=== PATIENT | female | born 1990 | race Caucasian/White ===

== ENCOUNTER → 2018-04-15 16:19 | Outpatient (CLI) | payer SELFPAY ==
[2018-04-15 17:58] LABS: Color, Urine Yellow (Yellow); Glucose, Dipstick Normal (Normal); Ketone-Dipstick 5 mg/dl (Negative); Leukocyte Esterase-Dipstick Negative /ul (Negative); Nitrite-Dipstick Negative (Negative); Occult Blood-Urine Negative /ul (Negative); Protein-Dipstick 30 mg/dl (Negative); Urine Bilirubin Dipstick Negative (Negative); Urine Clarity Clear (Clear); Urine Urobilinogen 1 mg/dl (Normal); Urine pH 6.5 (5.0 - 8.0)
[2018-04-15 18:01] LABS: Absolute Lymphocyte Count 2.86 X10^3/ul (0.83-4.51); Absolute Neutrophil Count 6.2 X10^3/uL (2.0-7.7); Basophil# 0.02 X10^3/uL; Basophil% 0.2 % (0-1); Eosinophil# 0.03 X10^3/uL; Eosinophils% 0.3 % (0-5); Hematocrit 40.1 % (37-47); Hemoglobin 13.5 g/dl (12.0-15.0); Lymphocyte # 2.86 X10^3/ul (4.0); Lymphocyte % 29.5 % (19-41); Mean Corp Hgb Conc 33.7 g/gl (32-36); Mean Corpuscular Hgb 29.5 pg (27.0-32.0); Mean Corpuscular Volume 87.6 fL (81-99); Monocyte# 0.53 X10^3/uL; Monocyte% 5.5 % (0-10); Neutrophil # 6.23 X10^3/uL (2.7-7.7); Neutrophil % 64.3 % (47-70); Platelet Count 261 K/mm3 (150-450); RBC Distribution Width CV 12.3 % (11.6-14.6); RBC Distribution Width SD 38.9 fl (35.1-43.9); Red Blood Count 4.58 M/mm3 (4.2-5.4); White Blood Count 9.7 K/mm3 (4.4-11.0)
[2018-04-15 18:03] LABS: POSITIVE COUNT NO; POSITIVE DIFFERENTIAL NO; POSITIVE MORPHOLOGY NO
[2018-04-15 18:13] LABS: Thyroid Stim Hormone (TSH) 0.54 uIU/mL (0.358-3.74)
[2018-04-15 18:53] LABS: HIV - WCH Non-Reactive (Nonreactive); Rubella IgG 61.5 IU/mL
[2018-04-15 20:31] LABS: Chlamydia Trachomatis by PCR Negative (Negative); Neisserai gonorrhoeae by PCR Negative (Negative); Probe Check PASS; Sample Adequacy Control PASS; Specimen Processing Control PASS
[2018-04-17 03:50] LABS: Prenatal RPR NONREACTIVE (NONREACTIVE)
[2018-04-17 11:37] LABS: HEPATITIS B SURFACE AG Negative (Negative); Hep C Antibodies <0.1 s/co ratio (0.0-0.9)
[2018-04-24 12:06] LABS: HPV Reflexed? NOT INDICATED
== END ==
PROVIDERS: Visit Provider Obstetrics & Gynecology
DX: Z34.81 Encounter for supervision of other normal pregnancy, first trimester (principal); Z12.4 Encounter for screening for malignant neoplasm of cervix; Z11.3 Encounter for screening for infections with a predominantly sexual mode of transmission
CPT/HCPCS: 36415; 81002; 84443; 85025; 86703; 86762; 86803; 87340; 87491; 87591; 88175; G0145

== ENCOUNTER → 2018-10-21 13:36 | Outpatient (CLI) | payer SELFPAY | PROVIDERS: Visit Provider Obstetrics & Gynecology | DX: Z36.85 Encounter for antenatal screening for Streptococcus B (principal) | CPT/HCPCS: 87081 ==

== ENCOUNTER 2018-11-12 00:15 | Outpatient (CLI) | payer SELFPAY ==
[2018-11-12 01:23] VITALS: BMI 28.5
--- NOTE | 2018-11-12 08:04 | OB.TRI.NOTE ---
History of Present Illness Date of Service: 11/12/18 Was patient seen by the physician?: Yes Reason For Visit: R/O labor Date of Service: 11/12/18 Final SRI: 11/19/18 Final SRI Source: US <20 weeks Gestational age: 39 Weeks and 0 Days History of Present Illness: Contractions at home. 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 No signs of SROM. Reassuring FHR tracing. Will return if symptoms of labor increase or has SROM.
--- NOTE | 2018-11-12 08:07 | OB.TRI.HP_ITS ---
History of Present Illness Date of Service: 11/12/18 Was patient seen by the physician?: Yes Reason For Visit: R/O labor Date of Service: 11/12/18 Final SRI: 11/19/18 Final SRI Source: US <20 weeks Gestational age: 39 Weeks and 0 Days History of Present Illness: Contractions at home. 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 No signs of SROM. Reassuring FHR tracing. Will return if symptoms of labor increase or has SROM.
== END 2018-11-12 03:20 | disposition home or self-care (01) ==
LOC: WPOUT 00:59 → WP 01:00
PROVIDERS: Visit Provider Obstetrics & Gynecology
DX: Z34.93 Encounter for supervision of normal pregnancy, unspecified, third trimester (principal)
CPT/HCPCS: 59025; 59050; 99218; G0378

== ENCOUNTER 2018-11-17 18:10 | Outpatient (CLI) | payer SELFPAY ==
--- NOTE | 2018-11-19 13:00 | OB.TRI.NOTE ---
History of Present Illness Date of Service: 11/17/18 Was patient seen by the physician?: No Reason For Visit: RULE OUT LABOR Date of Service: 11/17/18 Final SRI: 11/18/18 Final SRI Source: US <20 weeks Gestational age: 40 Weeks and 1 Days History of Present Illness: contractions, no signs of SROM Allergies No Known Allergies Allergy (Verified 11/18/18 04:51) Physical Exam General: Alert, Oriented x3, Cooperative, No apparent distress Cardiovascular: Regular rate, Regular Rhythm Lungs: Clear to auscultation, Normal air movement Abdomen: Soft, Non Tender, Non-Distended, Gravid, Appropriate for Gestational Age Extremities:: No clubbing Neurological: Neuro grossly intact [employer]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 Return with increasing signs of labor or with SROM
== END 2018-11-17 21:30 | disposition home or self-care (01) ==
LOC: WPOUT 20:15 → WP 20:16
PROVIDERS: Family Provider Obstetrics & Gynecology; Visit Provider Obstetrics & Gynecology
DX: Z34.93 Encounter for supervision of normal pregnancy, unspecified, third trimester (principal)
CPT/HCPCS: 59025; 59050; 99218; G0378

== ENCOUNTER 2018-11-18 04:05 | Inpatient (IN) | payer SELFPAY ==
[2018-11-18] MEDS: Oxytocin 30 units/NS 500 ml 30 UNITS/500 ML IV.SOLN 334 UNITS IV (04:17)
--- NOTE | 2018-11-18 04:42 | PCM.OB.VAG ---
Vaginal Delivery Maternal Presentation: Active Labor Presented s/p home delivery with retained placenta at 39w5d ega Amniotic Membrane Rupture Type: Spontaneous at home Rupture of Membrane time: 0330 Amniotic Fluid Description: Clear Final SRI: 11/20/18 Final SRI Source: US <20 weeks Gestational age: 39 Weeks and 5 Days Date of Procedure: 11/18/18 Pre-Operative Diagnosis: Retained polacenta Post-Operative Diagnosis: same Surgery/ Procedure Performed: Spontaneous Vaginal Delivery Type of Anesthesia: Local with 1% lidocaine Description of Procedure: Delivered at home then brought to L and D by squad. Placenta in place on presentation and was delivered spontaneously intact with a centrally located 3VC, The membranes were mildly meconium stained. Inspection revealed a small posterior vaginal perineal tear (first degree). This was repaired with 2-0 Vicryl. A small right periurethral tear was repaired with 3-0 rapide suture. The uterus contracted well. This was a delivery. Presentation: Vertex Placental Delivery Description: Spontaneous Placenta Disposition: [facility] Percentage of Placenta Abruption: 0 Cord Vessel Description: 3 Vessels Nuchal Cord Compression: Without compression Cord Entanglement: None Estimated Blood Loss: 200cc Infant A gender: Male Episiotomy Description: None Laceration: Midline, Periurethral Extnsion/lac, Perineal Extension/lac, Vaginal Extension/lac, 1st degree Medications given after delivery: IV Pitocin Complications: None
[2018-11-18] MEDS: Oxytocin 30 units/NS 500 ml 30 UNITS/500 ML IV.SOLN 167 UNITS IV (04:46)
--- NOTE | 2018-11-18 04:49 | DCINST_ITS ---
Discharge Diet: No Restrictions Discharge Activity: Return to Normal Activity, No Restrictions, May Drive, May Shower Return to work on:: 01/12/19 May shower in (days): 0 May resume sexual activity in: 6 weeks Call your doctor if your incision/area has: Sudden Increased Bleeding, Increased Pain/ Swelling, Foul Smelling Discharge Call your doctor if you observe: Fever of 101 or Higher, Inability to urinate, Inability to have a bowel movement, Using more than one pad per hour, Shortness of breath, Chest pain, Calf discomfort, Uncontrolled pain Cleanse incision/area with: Soap & Water Additional Instructions: If you experience any of the following, contact your healthcare provider. * Bleeding that soaks a pad every hour for 2 hours * Fever 100.4 or higher * Unrelieved incision or abdominal pain * Swelling, redness, discharge or bleeding from your incision or episiotomy site * Your incision begins to separate * Problems urinating (including inability to urinate or burning while urinating). * Visual changes * Severe headache * Flu-like symptoms * Pain or redness in one of both of your breasts * Pain, warmth, tenderness or swelling in your legs, especially the calf area * Frequent nausea and vomiting * Symptoms of depression or anxiety If you experience any of the following, call 911 or go to the nearest Emergency Room. * Chest pain * Problems breathing * Seizure activity * Partial or complete paralysis of a body part, slurred speech, weakness or drooping of the face, or a sudden inability to walk or hold your balance Allergies/Adverse Reactions: Allergies No Known Allergies Allergy (Verified 11/12/18 01:24) Medications to take at Discharge Vit,Calc76/Iron/Folic [Pnv 29-1 Tablet] 1 tab PO DAILY 11/12/18 Ibuprofen [Motrin] 600 mg PO Q6H PRN PRN #30 tab 11/18/18 The following prescriptions were given: Ibuprofen [Motrin] 600 mg PO Q6H PRN PRN #30 tab PRN Reason: pain or cramping Please Follow Up With: Clifford Farmer MD When: 6 weeks Test Results: Test results from this visit will be discussed in further detail at your follow- up appointment, if applicable. Proposed Discharge Date: 11/20/18
[2018-11-18 05:06] LABS: Absolute Lymphocyte Count 2.02 X10^3/ul (0.83-4.51); Absolute Neutrophil Count 19.9 X10^3/uL (2.0-7.7); Basophil# 0.01 X10^3/uL; Eosinophil# 0.01 X10^3/uL; Hematocrit 43.3 % (37-47); Hemoglobin 14.3 g/dl (12.0-15.0); Lymphocyte # 2.02 X10^3/ul (4.0); Lymphocyte % 8.8 % (19-41); Mean Corpuscular Hgb 30.2 pg (27.0-32.0); Mean Corpuscular Volume 91.4 fL (81-99); Mean Platelet Vol. 11.4 fl (6.2-12.0); Monocyte# 0.91 X10^3/uL; Neutrophil # 19.87 X10^3/uL (2.7-7.7); Neutrophil % 86.6 % (47-70); Platelet Count 218 K/mm3 (150-450); RBC Distribution Width CV 13.4 % (11.6-14.6); RBC Distribution Width SD 44.3 fl (35.1-43.9); Red Blood Count 4.74 M/mm3 (4.2-5.4)
[2018-11-18 05:07] LABS: POSITIVE COUNT NO; POSITIVE DIFFERENTIAL NO; POSITIVE MORPHOLOGY NO
[2018-11-18 05:14] VITALS: BMI 27.7
--- NOTE | 2018-11-18 06:18 | NURSING ---
Pt arrived via squad after unplanned home delivery. Squad reports born at 03:20am, pt unsure of rupture time or onset of labor. Dr. Gandhi in room to deliver placenta, fluid appeared light meconium. Dr. Rosas at bedside on arrival.
--- NOTE | 2018-11-18 07:41 | PN.OBGYN_ITS ---
Subjective: Some vaginal soreness otherwise well. Objective: Afeb VSS Hgb good today - Physical Exam General: Alert, Oriented x3, Cooperative, No apparent distress Lungs: Clear to auscultation, Normal air movement Cardiovascular: Regular rate, Regular Rhythm Abdomen: Soft, Non Tender, Non-Distended Extremities: No edema Skin: No rashes Neurological: Neuro grossly intact Psych/Mental Status: Normal Affect Comment: Lochia appropriate Weight: 171 lb 12.8 oz Body Mass Index (BMI) 27.7 Intake and Output for Last 24 Hours 11/16/18 11/17/18 11/18/18 23:59 23:59 23:59 Intake Total 834 / 834 Balance 834 / 834 Laboratory Tests Past 24 Hrs 11/18/18 11/18/18 04:16 04:16 WBC 23.0 H RBC 4.74 Hgb 14.3 Hct 43.3 MCV 91.4 MCH 30.2 MCHC 33.0 RDW 13.4 RDW Differential 44.3 H Plt Count 218 MPV 11.4 Immature Gran % (Auto) 0.600 Neut % (Auto) 86.6 H Lymph % (Auto) 8.8 L [place] % (Auto) 4.0 Eos % (Auto) 0.0 Baso % (Auto) 0.0 Absolute Neuts (auto) 19.9 H Absolute Lymphs (auto) 2.02 Total Counted Not Reportable Blood Type B POSITIVE Antibody Screen NEGATIVE Medical Necessity - Tobacco Use Smoking Status: Never smoker Assessment/Plan Doing well on PP day#0. Continue routine PP care.
[2018-11-18 07:45] VITALS: BP 122/66; PULSE 98; RESP 16; TEMP 36.8
[2018-11-18] MEDS: Prenatal Vits Tablet 1 TABLET PO (11:53)
[2018-11-18] MEDS: Ibuprofen 600 MG Tablet PO (12:04)
[2018-11-18 12:07] VITALS: BP 125/87; PULSE 57; RESP 16; TEMP 37
[2018-11-18 15:45] VITALS: BP 106/70; PULSE 76; RESP 16; TEMP 37
[2018-11-18 20:00] VITALS: BP 114/74; PULSE 83; RESP 16; TEMP 36.8
[2018-11-19] VITALS: PULSE 80; RESP 18; TEMP 36.7
[2018-11-19 02:00] VITALS: PULSE 88; RESP 17
[2018-11-19 06:43] LABS: Hematocrit 37.1 % (37-47); Hemoglobin 12.2 g/dl (12.0-15.0); Mean Corp Hgb Conc 32.9 g/gl (32-36); Mean Corpuscular Hgb 30.7 pg (27.0-32.0); Mean Corpuscular Volume 93.2 fL (81-99); Platelet Count 179 K/mm3 (150-450); RBC Distribution Width CV 13.8 % (11.6-14.6); RBC Distribution Width SD 47.2 fl (35.1-43.9); Red Blood Count 3.98 M/mm3 (4.2-5.4); White Blood Count 12.8 K/mm3 (4.4-11.0)
[2018-11-19 06:44] LABS: Scan Indicated on CBC? Y/N NO
--- NOTE | 2018-11-19 08:23 | PCM.PN.OB ---
Subjective: No specific complaints. Bleeding ;light, breast feeding. Objective: Afeb VSS - Physical Exam General: Alert, Oriented x3, Cooperative, No apparent distress Lungs: Clear to auscultation, Normal air movement Cardiovascular: Regular rate, Regular Rhythm Abdomen: Soft, Non Tender, Non-Distended Extremities: No edema Skin: No rashes Neurological: Neuro grossly intact Psych/Mental Status: Normal Affect Comment: Lochia light Vital Signs Temp Pulse Resp BP 98.0 F 88 17 114/74 11/19/18 00:00 11/19/18 02:00 11/19/18 02:00 11/18/18 20:00 Oxygen Delivery Method Room Air Weight: 171 lb 12.8 oz Body Mass Index (BMI) 27.7 Intake and Output for Last 24 Hours 11/17/18 11/18/18 11/19/18 23:59 23:59 23:59 Intake Total 834 / 834 Output Total 1100 / 1100 Balance -266 / -266 Laboratory Tests Past 24 Hrs 11/19/18 06:25 WBC 12.8 H RBC 3.98 L Hgb 12.2 Hct 37.1 MCV 93.2 MCH 30.7 MCHC 32.9 RDW 13.8 RDW Differential 47.2 H Plt Count 179 MPV 11.0 Medical Necessity - Tobacco Use Smoking Status: Never smoker Assessment/Plan Doing well on PP day#1-2. Cleared for discharge home today. Home going instructions and warnings given.
--- NOTE | 2018-11-19 08:24 | PCM.DC.SUM ---
Discharge Date and Diagnosis Date of Admission: 11/18/18 Date of Discharge: 11/19/18 - Primary Discharge Diagnosis S/P home delivery Hospital Course and Treatment Operations: None Procedures: - - Delivery of placenta, repair of vaginal lacerations. Summary of Care Provided: The patient is a 28 year old F [presented after home delivery of viable male infant. Placenta was delivered here and vaginal lacerations repaired without complication. Post course unremarkable. Discharged home on PP day 1-2] - Physical Exam Vital Signs Temp Pulse Resp BP 98.0 F 88 17 114/74 11/19/18 00:00 11/19/18 02:00 11/19/18 02:00 11/18/18 20:00 Oxygen Delivery Method Room Air Weight: 171 lb 12.8 oz Body Mass Index (BMI) 27.7 Intake and Output for Last 24 Hours 11/17/18 11/18/18 11/19/18 23:59 23:59 23:59 Intake Total 834 / 834 Output Total 1100 / 1100 Balance -266 / -266 Laboratory Tests Past 24 Hrs 11/19/18 06:25 WBC 12.8 H RBC 3.98 L Hgb 12.2 Hct 37.1 MCV 93.2 MCH 30.7 MCHC 32.9 RDW 13.8 RDW Differential 47.2 H Plt Count 179 MPV 11.0 Discharge Diet: No Restrictions Discharge Activity: Return to Normal Activity, No Restrictions, May Drive, May Shower Return to work on:: 01/12/19 May shower in (days): 0 May resume sexual activity in: 6 weeks Call your doctor if your incision/area has: Sudden Increased Bleeding, Increased Pain/ Swelling, Foul Smelling Discharge Call your doctor if you observe: Fever of 101 or Higher, Inability to urinate, Inability to have a bowel movement, Using more than one pad per hour, Shortness of breath, Chest pain, Calf discomfort, Uncontrolled pain Cleanse incision/area with: Soap & Water Home Medications: Medications to take at Discharge Vit,Calc76/Iron/Folic [Pnv 29-1 Tablet] 1 tab PO DAILY 11/12/18 Please Follow Up With: Clifford Farmer MD When: 6 weeks Disposition: Home Minutes spent on discharge:: 15 Patient Condition:: Good Medical Necessity - Tobacco Use Smoking Status: Never smoker Meaningful Use Info Meaningful Use Diagnoses (Choose all that apply): None applicable
[2018-11-19 08:45] VITALS: BP 107/71; PULSE 76; RESP 16; TEMP 36.9
[2018-11-19] MEDS: Prenatal Vits Tablet 1 TABLET PO (12:14)
[2018-11-19 14:00] VITALS: BP 108/76; PULSE 80; RESP 16; TEMP 36.9
== END 2018-11-19 14:15 | disposition home or self-care (01) | DRG 807 ==
PROVIDERS: Admitting Provider Obstetrics & Gynecology; Family Provider Obstetrics & Gynecology; Visit Provider Obstetrics & Gynecology
DX: O70.0 First degree perineal laceration during delivery (principal); Z37.0 Single live birth; Z3A.39 39 weeks gestation of pregnancy; O34.211 Maternal care for low transverse scar from previous cesarean delivery; N85.8 Other specified noninflammatory disorders of uterus; O77.0 Labor and delivery complicated by meconium in amniotic fluid; O73.0 Retained placenta without hemorrhage
CPT/HCPCS: 85025; 85027; 86850; 86900

== ENCOUNTER → 2020-08-28 | Outpatient (CLI) | payer SELFPAY ==
[2020-08-28 16:49] LABS: Absolute Lymphocyte Count 2.67 X10^3/uL (0.83-4.51); Absolute Neutrophil Count 5.5 X10^3/uL (2.0-7.7); Basophil# 0.04 X10^3/uL; Basophil% 0.5 % (0-1); Eosinophil# 0.03 X10^3/uL; Eosinophils% 0.3 % (0-5); Hematocrit 38.9 % (37-47); Hemoglobin 12.6 g/dL (12.0-15.0); Lymphocyte # 2.67 X10^3/ul (4.0); Lymphocyte % 30.8 % (19-41); Mean Corp Hgb Conc 32.4 g/dL (32-36); Mean Corpuscular Hgb 28.8 pg (27.0-32.0); Mean Platelet Vol. 10.8 fl (6.2-12.0); Monocyte# 0.46 X10^3/uL; Monocyte% 5.3 % (0-10); NRBC Flagged by Analyzer 0 % (0-5); Neutrophil # 5.46 X10^3/uL (2.7-7.7); Neutrophil % 62.9 % (47-70); Platelet Count 267 K/mm3 (150-450); RBC Distribution Width CV 11.9 % (11.6-14.6); RBC Distribution Width SD 39.3 fl (35.1-43.9); Red Blood Count 4.37 M/mm3 (4.2-5.4); White Blood Count 8.7 K/mm3 (4.4-11.0)
[2020-08-28 16:54] LABS: Color, Urine Yellow (Yellow); Glucose, Dipstick Normal (Normal); Ketone-Dipstick Negative (Negative); Leukocyte Esterase-Dipstick Negative /ul (Negative); Nitrite-Dipstick Negative (Negative); Occult Blood-Urine 10 /ul (Negative); Protein-Dipstick Negative (Negative); Urine Bilirubin Dipstick Negative (Negative); Urine Clarity Clear (Clear); Urine Urobilinogen Normal (Normal)
[2020-08-28 17:19] LABS: Thyroid Stim Hormone (TSH) 1.64 uIU/mL (0.358-3.74)
[2020-08-29 12:37] LABS: HIV - WCH Non-Reactive (Nonreactive); Hepatitis B Surface Antigen Non-Reactive (Nonreactive); Hepatitis C Antibody Non-Reactive (Nonreactive); Rubella IgG Reactive (Nonreactive)
[2020-08-31 01:27] LABS: Prenatal RPR NONREACTIVE (NONREACTIVE)
[2020-08-31 03:07] LABS: Chlamydia By Nucleic Acid AMP Negative (Negative)
[2020-08-31 08:37] LABS: Gonococcus By Nucleic Acid AMP Negative (Negative)
== END | disposition home or self-care (01) ==
LOC: LABSPEC 15:51
PROVIDERS: Visit Provider Obstetrics & Gynecology
DX: Z34.81 Encounter for supervision of other normal pregnancy, first trimester (principal); Z12.4 Encounter for screening for malignant neoplasm of cervix; Z11.3 Encounter for screening for infections with a predominantly sexual mode of transmission
CPT/HCPCS: 36415; 81002; 84443; 85025; 86703; 86762; 86803; 87086; 87088; 87340; 87491; 87591; 88175; G0145

== ENCOUNTER → 2021-03-14 | Outpatient (CLI) | payer SELFPAY | END | disposition home or self-care (01) | LOC: LABSPEC 15:29 | PROVIDERS: Visit Provider Obstetrics & Gynecology | DX: Z36.85 Encounter for antenatal screening for Streptococcus B (principal) | CPT/HCPCS: 87081 ==

== ENCOUNTER 2021-04-06 06:50 | Inpatient (IN) | payer SELFPAY ==
[2021-04-06] VITALS (42 sets, daily range): BP systolic 88–166; BP diastolic 51–80; PULSE 66–87; RESP 16–18; TEMP 36.2–37; O2SAT 73–100; BMI 27.1
[2021-04-06] MEDS: Lactated Ringers 1,000 ML 50 ML IV (07:05)
[2021-04-06 07:37] LABS: Absolute Lymphocyte Count 2.44 X10^3/uL (0.83-4.51); Absolute Neutrophil Count 8.7 X10^3/uL (2.0-7.7); Basophil# 0.04 X10^3/uL; Basophil% 0.3 % (0-1); Eosinophil# 0.02 X10^3/uL; Eosinophils% 0.2 % (0-5); Hematocrit 40.4 % (37-47); Hemoglobin 13.2 g/dL (12.0-15.0); Lymphocyte # 2.44 X10^3/ul (0.83-4.51); Lymphocyte % 20.5 % (19-41); Mean Corp Hgb Conc 32.7 g/dL (32-36); Mean Corpuscular Volume 94.8 fL (81-99); Mean Platelet Vol. 11.8 fl (6.2-12.0); Monocyte# 0.64 X10^3/uL; Monocyte% 5.4 % (0-10); NRBC Flagged by Analyzer 0 % (0-5); Neutrophil # 8.65 X10^3/uL (2.7-7.7); Neutrophil % 72.8 % (47-70); Platelet Count 173 K/mm3 (150-450); RBC Distribution Width CV 12.8 % (11.6-14.6); RBC Distribution Width SD 44.5 fl (35.1-43.9); Red Blood Count 4.26 M/mm3 (4.2-5.4); White Blood Count 11.9 K/mm3 (4.4-11.0)
[2021-04-06] MEDS: Lactated Ringers 500 ML 999 ML IV (08:08)
--- NOTE | 2021-04-06 08:50 | PCM.HP.BLA ---
History and Physical Date of Admission: 04/06/21 ACOG ANTEPARTUM RECORD - HISTORY AND PHYSICAL (04/06/2021) Name: JULIA LORENZO History of this : This is a 30 year old [id number] presents at 39 wks + 4 days gestation in early labor. History significant for precipitous delivery at home at term and prior . OB Physician: Clifford Farmer MD [place]'s Physician: Rupal Rodriguez ...................................................................... : 1990 Age: 30 Address: [address] [place] [address] Phone: [phone] ([phone] Insurance Carrier: Emergency Contact: HIRAUS LORENZO [phone] ...................................................................... Final SRI: 04/09/21 By Ultrasound: 8 weeks 0 days PARITY: (G-Total Pregnancies P-Fullterm,Premature,Induced AB,Spont AB, Ectopics, Multiple,Living) SRI CONFIRMATION: By LMP: 06/26/20 Initial Exam: 04/02/21 By First Ultrasound Exam: 04/09/21 Final SRI: 04/09/21 OB PROBLEM LIST: 2nd child precip delivery at home Gentic and carrier screening declined Oldest son born with a rocker foot Prior . 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 Drug Use - denies use of street drugs Sexual Activity - Place of - [place] Spouse-Sig Other Name - Hira Spouse-Sig Other Occupation - [employer] Spouse-Sig Other Phone No - [phone] Children Name(s) - Mariano Mendenhall PRIOR DELIVERY HISTORY DEL DATE GEST LAB WT LB WT OZ TYPE ANES LABOR TX 03 Dec 04 39 5 7 0 Vag Local No 18 December 31 39 0 6 2 C-Sec Spinal No 30 Oct 18 5 0 0 0 Vag None No ANTEPARTUM FLOW CHART VISIT GE RTC FU F F MD U U DATE WK MD WKS HT PN HR M SS BP ED WT MD GL D EF ST __ ____ ___ __ __ ___ __ __ __ ___ __ __ __ ___ __ Mar JMW 1 38 V + + 112/70 sl 170 tr - S Mar JMW 1 38 V + + 104/68 0 167 1+ - 2+ 50 -2 04 Mar 37 JMW 1 37 + + 106/70 0 169 tr - 28 Feb 36 SHM 1 36 V + + 90/60 0 167 tr - 1 0 -4 14 Feb 34 SHM 2 34 V + + 124/62 0 165 - - Jan 32 CM 2 32 V + + 104/60 0 164 ne ne 08 Feb 13 JMW 3 29 + + 110/75 0 157 - tr January 08 JMW 4 24 + + 122/78 0 152 tr - 07 Dec 05 JMW 4 20 + + 112/70 0 147 - - 09 Oct 31 JMW 4 16 + + 100/58 0 142 tr - 09 Sep 29 JMW 4 + O 104/64 0 141 tr - ANTEPARTUM NOTE(S): Apr 05 2021: periodic contractions/cramping,Good FM Mar 28 2021: mild cramping, Good FM Mar 21 2021: Good FM Mar 14 2021: see note Feb 28 2021: feeling well. AM Feb 13 2021: Jan 23 2021: CBC,OGCT Today,Good FM,Feeling Well Dec 19 2020: Glucola/Instructions Given,Good FM Nov 22 2020: Sono Today, Good FM,Periodic Fatigue continues Oct 24 2020: Periodic nausea,Quickening Noted Sep 26 2020: Doing Well COMPREHENSIVE ANTEPARTUM NOTE(S): Mar 28 2021: Julia is here for a PNV at 38 wks. Good FM. No edema present. Denies ctx's, mild cramping occasionally. No back pain or pelvic pressure. Would like a cervix check. MK Mar 21 2021: Julia is here for visit at 37.2 weeks. Feeling well. Baby active. Discussed entering hosp during the night. Some cramping at home but no timeable contractions. No spcecific concerns today. DRC. Mar 21 2021: H taken to OB. tkg Mar 14 2021: Julia is here for visit. She is doing well and without complaint today. GBS today, LARC form completed and declined by Julia. She does relate her last baby was born at home and pretty traumatized by this. Her first son was born by C/S for NRFHT. Easy at home and planned again with this . She relates they will head to hospital as soon as she is having regula Mar 14 2021: Reviewed cervical exam and induction indications. Ok to with cervix check today. hx unintended home last time following discharge from hospital when in latent labor. GBS obtained. Declines LARC. Feb 28 2021: No complaints. Reviewed GBS for next visit and LARC forms. Does not desire LARC. Labor, FM precautions reviewed. Also discussed visitor policy. Pt anxious as her oldest will start Kindergarten on her due date. Feb 13 2021: Julia is here for PNV. Feeling well and voices no complaints or concerns. Having good FM. No edema noted. Urine neg/neg. LSS Feb 13 2021: 32/1w. Feeling well without issues. F/u 2w. CM Oct 24 2020: Here for PNV and declines MSAFP and CF testing. Questionable Quickening noted. Periodic nausea. ASHLEY Sep 28 2020: TELEHEALTH NOB VISIT, 30 MINUTES DURATION. Julia is a 30 year old A1 L2 with an SRI of 04/09/2021, current GA is 12 w 3 d. She resides with her , Hira, and their two sons, Abdirashid and Mariano. Abdirashid was delivered by C/S at [facility] for non-reassuring FHT's, he was also born with a rocker foot. Julia states that she was planning at at [facility] with Mariano, but she ended Sep 27 2020: Julia did not answer phone for NOB Telehealth visit. Message left to please call to reschedule. Yordy AREVALO. Sep 04 2020: Julia did not answer phone for Telehealth [place]. Unable to leave message as voice mail not set up. Yordy AREVALO. REVIEW OF SYSTEMS: GENERAL - Denies fever, or chills SKIN - Denies rash, new skin lesions, or change in moles EYES - Denies blurred vision, or change in visual acuity EARS - Denies ear pain, or difficulty hearing NOSE - Denies nasal congestion, discharge, or bleeding MOUTH - Denies sore throat, or difficulty swallowing NECK - Denies pain or swelling RESPIRATORY - Denies shortness of breath, cough, wheezing CARDIOVASCULAR - Denies palpitations, chest pain, orthopnea, PND, peripheral edema, syncope or claudication GASTROINTESTINAL - Denies nausea, vomiting, diarrhea, constipation, Denies abdominal pain, melena and or bright red blood GENITOURINARY - Denies dysuria, frequency of urination, urgency, or hesitancy MUSCULOSKELETAL - Denies joint or muscle pain, or back pain NEUROLOGICAL - Denies localized numbness, weakness, or tingling PSYCHIATRIC - Denies depression, anxiety, substance abuse or suicide attempts ENDOCRINE - Denies heat or cold intolerance, weight loss or gain, increasing thirst HEMATO-IMMUNOLOGIC - Denies easy bruising, bleeding, oral ulcerations or recurrent infections GENETICS SCREENING: Age 35+ years: No Thalassemia: No Neural Tube Defect: No Down Syndrome: No ABE-SACHS: No Sickle Cell Disease: No Hemophilia: No Musc. Dystrophy: No Cystic Fibrosis: No-declines screening [place] Chorea: No Mental Retardation: No Fragile X: No Other genetic: No Other defects: No SABs/still births: No Drugs since LMP: No Comments: son had Curved Foot- corrected with brace INFECTION HISTORY: High risk AIDS: No High risk Hepatitis: No Exposed to TB: No Exposed to Herpes: No Rash/viral illness since LMP: No History of STD: No MENSTRUAL HISTORY: *Menses Amount/Duration: 5 daysMenses Regularity: RegularMenarche (Age Onset): 14* PAST SUMMARY: PARITY: 1. Total Pregnancies............ 4 2. Full Term Pregnancies........ 2 3. Premature.................... 0 4. Abortions - Induced.......... 0 5. Abortions - Spontaneous...... 1 6. Ectopics..................... 0 7. Multiple Births.............. 0 8. Living Children.............. 2 PAST #1: Date of :.................. 01/03/16 Gestation Weeks:................ 39 Length of labor(hours):......... 0 Sex:............................ M Weight-lbs:............... 6 Weight-oz:................ 2 Type of Delivery:............... C-Sect Type of Anesthesia:............. Spinal Place of Delivery:.............. [facility] Treatment of Labor?:.... No Comment: CURVED FOOT PAST #2: Date of :.................. 11/14/17 Gestation Weeks:................ 5 Length of labor(hours):......... 0 Sex:............................ UNKNOWN Weight-lbs:............... 0 Weight-oz:................ 0 Type of Delivery:............... Vag Type of Anesthesia:............. None Place of Delivery:.............. HOME Treatment of Labor?:.... No Comment: SAB PAST #3: Date of :.................. 11/18/18 Gestation Weeks:................ 39 Length of labor(hours):......... 5 Sex:............................ M Weight-lbs:............... 7 Weight-oz:................ 0 Type of Delivery:............... Vag Type of Anesthesia:............. Local Place of Delivery:.............. Home Treatment of Labor?:.... No Comment: UNPLANNED HOME , PHYSICAL EXAMINATION General Appearence: 30 yo female in no acute distress Vital Signs: AF, VSS Heart: RRR without rubs or gallops Lungs: CTA x 2 Breasts: deferred Abdomen: gravid Pelvis: Cervix: 4+/75 Presentation: cephalic Station: -2 Fetus: Size: AGA Movement: present Heart: present LAB TEST(S) ORDERED SINCE:07/13/20 03/18/2021 RULE OUT BETA STREP (GRP. B) 01/23/2021 GLUCOSE CHALLENGE 50GM 1 HOUR 01/23/2021 CBC + DIFF 08/31/2020 PAP TEST I-G 08/31/2020 CULTURE, URINE 08/31/2020 CHLAMYDIA/GC NAHOMY APTIMA 08/30/2020 RPR 08/29/2020 RUBELLA IGG 08/29/2020 HIV - [facility] 08/29/2020 HEPATITIS C ANTIBODY 08/29/2020 HEPATITIS B SURFACE ANTIGEN 08/28/2020 URINALYSIS, ROUTINE (DIPSTICK) 08/28/2020 THYROID STIM HORMONE (TSH) 08/28/2020 T AND S-NO CHARGE W/PNP 08/28/2020 CBC W/DIFF, AUTOMATED == ==== Order Observation Description Value Ref_Range A* Site == ==== RULE OUT BETA S NOTE SHINE CBC + DIFF NOTE [facility] CBC + DIFF CBC + DIFF [facility] CBC-COMPLETE BLOOD COUNT CBC + DIFF WBC 10.3 x 10EE3/UL 4.5 - 10.8 [facility] CBC + DIFF RBC 3.75 x 10EE6/UL 4.10 - 5.30 L [facility] CBC + DIFF HEMOGLOBIN 11.9 g/dl 12.0 - 16.0 L [facility] CBC + DIFF HEMATOCRIT 34.4 % 34.0 - 46.0 [facility] CBC + DIFF MCV 92 fl 80 - 99 [facility] CBC + DIFF MCH 32 pg 27 - 33 [facility] CBC + DIFF MCHC 35 X10 3 32 - 36 [facility] CBC + DIFF RDW/CV 13.1 % 12.0 - 15.6 [facility] CBC + DIFF PLATELET 183 x10EE3/UL 150 - 450 [facility] CBC + DIFF MPV 9.9 fl 6.6 - 10.5 [facility] AUTOMATED DIFFERENTIAL CBC + DIFF NEUT % 76.4 % 46.0 - 76.0 H [facility] CBC + DIFF LYMPH % 18.3 % 20.0 - 45.0 L [facility] CBC + DIFF MONOS % 4.3 % 0.0 - 10.0 [facility] CBC + DIFF EO % 0.5 % 0.0 - 7.0 [facility] CBC + DIFF BASO % 0.5 % 0.0 - 2.0 [facility] CBC + DIFF LYMPH # 1.90 x10EE3/UL 0.80 - 2.80 [facility] CBC + DIFF NEUT # 7.90 x10EE3/UL 1.50 - 7.10 H [facility] CBC + DIFF MONO # 0.40 x10EE3/UL 0.20 - 1.00 [facility] CBC + DIFF EO # 0.00 x10EE3/UL 0.00 - 0.50 [facility] CBC + DIFF BASO # 0.00 x10EE3/UL 0.00 - 0.10 [facility] CBC + DIFF MANUAL DIFF SEE BELOW [facility] CBC + DIFF BANDS 3 % 0 - 5 [facility] CBC + DIFF SEGS 55 % 50 - 70 [facility] CBC + DIFF LYMPH 31 % 20 - 40 [facility] CBC + DIFF MONOS 9 % 0 - 8 H [facility] CBC + DIFF ATY LYMP 2 % [facility] CBC + DIFF CELL COUNT 100 [facility] CBC + DIFF MORPHOLOGY NORMAL [facility] {CD] GLUCOSE CHALLEN NOTE [facility] GLUCOSE CHALLEN GLUCOSE CHALLENGE 50GM 1 [facility] GLUCOSE CHALLENGE 50 GMS 1 HOUR GLUCOSE CHALLEN GLUCOSE 1HR 110 mg/dl 70 - 140 [facility] CULTURE, URINE NOTE SHINE RPR NOTE SHINE RPR RPR NONREACTIVE NONREACTIVE ML HEPATITIS C ANT NOTE SHINE HEPATITIS C ANT HEPATITIS C AB Non-Reactive Nonreactive ML Non Reactive: < 0.8 Equivocal: >/= 0.8 to < 1.0 Reactive: >/= 1.0 The CDC recommends that a reactive/equivocal HCV antibody result be followed up by the HCV Nucleic Acid Amplification test ([id number]) HEPATITIS B ANN-MARIE NOTE SHINE HEPATITIS B ANN-MARIE HEPB SURFACE AG Non-Reactive Nonreactive ML HIV - [facility] NOTE SHINE HIV - [facility] HIV - [facility] Non-Reactive Nonreactive ML RUBELLA IGG NOTE SHINE RUBELLA IGG RUBELLA IGG Reactive Nonreactive ML Antibody Results Interpretation of Immune Status Non Reactive Presumed Non-Immune Equivocal Equivocal Reactive Presumed Immune Reason for Type AND Screen/Red Cells: Surgery? N [facility]~[address], [address]~ T AND BLOOD TYPE GEL B POSITIVE N ML T AND AB SCREEN GEL NEGATIVE N ML THYROID STIM HO NOTE SHINE THYROID STIM HO TSH 1.64 uIU/mL 0.358-3.74 ML URINALYSIS, ROU NOTE SHINE URINALYSIS, ROU COLOR Yellow Yellow ML URINALYSIS, ROU CLARITY Clear Clear ML URINALYSIS, ROU GLUCOSE, UR Normal mg/dl Normal ML URINALYSIS, ROU BILIRUBIN URINE Negative mg/dL Negative ML URINALYSIS, ROU KETONE UR Negative mg/dl Negative ML URINALYSIS, ROU SP.GR. DIPSTX 1.030 1.002-1.030 ML URINALYSIS, ROU PH UR 5.0 5.0 - 8.0 ML URINALYSIS, ROU PROT DIPSTX Negative mg/dl Negative ML URINALYSIS, ROU UROBILI Normal mg/dl Normal ML URINALYSIS, ROU NITRITE UR Negative Negative ML URINALYSIS, ROU OCCULT BLOOD-UR 10 /ul Negative H ML URINALYSIS, ROU LEUK ESTERASE Negative /ul Negative ML CBC W/DIFF, AUT NOTE SHINE CBC W/DIFF, AUT WBC 8.7 K/mm3 4.4-11.0 ML CBC W/DIFF, AUT RBC 4.37 M/mm3 4.2-5.4 ML CBC W/DIFF, AUT HGB 12.6 g/dL 12.0-15.0 ML CBC W/DIFF, AUT HCT 38.9 % 37-47 ML CBC W/DIFF, AUT MCV 89.0 fL 81-99 ML CBC W/DIFF, AUT MCH 28.8 pg 27.0-32.0 ML CBC W/DIFF, AUT MCHC 32.4 g/dL 32-36 ML CBC W/DIFF, AUT RDW CV 11.9 % 11.6-14.6 ML CBC W/DIFF, AUT RDW SD 39.3 fl 35.1-43.9 ML CBC W/DIFF, AUT PLT 267 K/mm3 150-450 ML CBC W/DIFF, AUT MPV 10.8 fl 6.2-12.0 ML CBC W/DIFF, AUT NEUT% 62.9 % 47-70 ML CBC W/DIFF, AUT LY% 30.8 % 19-41 ML CBC W/DIFF, AUT MONO% 5.3 % 0-10 ML CBC W/DIFF, AUT EO% 0.3 % 0-5 ML CBC W/DIFF, AUT BASO% 0.5 % 0-1 ML CBC W/DIFF, AUT IM GRAN % 0.200 % 0.0-0.9 ML IG% - Immature Granulocytes (promyelocytes, myelocytes and metamyelocytes) > 1% indicates that a LEFT SHIFT is Present. CBC W/DIFF, AUT ABSOLUTE NEUT 5.5 X10 3/uL 2.0-7.7 ML CBC W/DIFF, AUT ABSOLUTE LYMPH 2.67 X10 3/uL 0.83-4.51 ML CBC W/DIFF, AUT NRBC, FLAGGED 0 % 0-5 ML PAP TEST I-G NOTE SHINE PAP TEST I-G DIAGN Comment . LC NEGATIVE FOR INTRAEPITHELIAL LESION OR MALIGNANCY. PAP TEST I-G ADEQ Comment . LC Satisfactory for evaluation. Endocervical and/or squamous metaplastic cells (endocervical component) are present. PAP TEST I-G PERFORM Comment . LC Adin Becker, Anthropology Instructor (ASCP) PAP TEST I-G TEST METHOD Comment . LC This liquid based ThinPrep(R) pap test was screened with the use of an image guided system. Performed at: - [facility] [id number] Sales Order Clerk: Bárbara Serna MD, Phone: [phone] PAP TEST I-G COMM . . PAP TEST I-G PAPSMR Comment . LC The Pap smear is a screening test designed to aid in the detection of premalignant and malignant conditions of the uterine cervix. It is not a diagnostic procedure and should not be used as the sole means of detecting cervical cancer. Both false-positive and false-negative reports do occur. CHLAMYDIA/GC NA NOTE SHINE CHLAMYDIA/GC NA CHLAMY,NUC ACID Negative Negative LC CHLAMYDIA/GC NA GC BY NUC ACID Negative Negative LC Performed at: = - [facility] [id number] Sales Order Clerk: Bárbara Serna MD, Phone: [phone] Group B Beta Streptococcus is not isolated. Urine Culture Below infection level. ORGANISM 1: Mixed Gram Positive Organisms [place] Count <1000 == ==== Impression /Plan: 39 wks + 4 days intrauterine in labor. Prior . Preparations in progress for delivery.
[2021-04-06] MEDS: fentaNYL-bupivacaine (epidural) 100 ML BAG EPIDURAL (14:08)
[2021-04-06] MEDS: Oxytocin 30 units/NS 500 ml 30 UNITS/500 ML IV.SOLN 334 UNITS IV (14:21)
--- NOTE | 2021-04-06 16:17 | PCM.OPRPT ---
Problems Associated Problem List Diagnoses (1) (vaginal after ): Report of Operation Date of Procedure: 04/06/21 Pre-Operative Diagnosis: IUP, Prior Section Post-Operative Diagnosis: IUP, Prior Section Surgery/Procedure Performed:: Spontaneous Vaginal Delivery, Vaginal after
--- NOTE | 2021-04-06 16:22 | EX.PCM.OBRPT ---
Vaginal Delivery Maternal Presentation Maternal Presentation: Active Labor Operative Information Date of Procedure: 04/06/21 Pre-Operative Diagnosis: IUP, Prior Section Post-Operative Diagnosis: IUP, Prior Section Surgery / Procedure Performed: Spontaneous Vaginal Delivery and Type of Anesthesia: None Estimated Blood Loss: 250 cc Fluids Replaced: Crystalloid Findings Description of Procedure: Spontaneous vaginal delivery of a viable male with Apgars of 8/9 from an occiput anterior presentation with clear amniotic fluid and normal three-vessel placenta. No episiotomy or lacerations. Adherent placenta and banjo curette used with 2 gentle passes to remove final adherent membranes. Sponges okay. Delivery physician: Clifford Farmer MD. Presentation: Vertex Amniotic Membrane Rupture Type: Artificial Amniotic Fluid Description: Clear Placental Delivery Description: Spontaneous and Curettage Placenta Disposition: [facility] Cord Vessel Description: 3 Vessels Cord Entanglement: None A Gender: Male (1 minute): 8 (5 minute): 9 Post Vaginal Delivery Medications Given After Delivery: IV Pitocin Episiotomy Description: None Laceration: None Complication Complications: None
--- NOTE | 2021-04-06 16:27 | PCM.DC ---
Discharge Instructions Diet Discharge Diet: No restrictions Activity Discharge Activity: May Drive (In 1 to 2 days if not taking narcotic pain medication), May Shower and May Take a Tub Bath May resume sexual activity in: 4-6 weeks Additional Activity Instructions:: Nothing in the vagina for 4-6 weeks. You may return to work/school in 6 weeks. Dressing / Incision Call your doctor if you observe: Fever of 101 or Higher, Inability to urinate, Inability to have a bowel movement and Using more than 1 pad per hour Follow Up Care When: Call [phone] to make an appointment with your doctor in 6 weeks. Test Results: Test results from this visit will be discussed in further detail at your follow-up appointment, if applicable. Discharge Plan Admission Admit Date/Time: 04/06/21 06:50 Primary Reason for Your Visit: Vaginal Delivery Attending Provider: Clifford Farmer Primary Care Provider: Care Physician,Josephine Primary Discharge Orders/Prescriptions Prescriptions: No Action PNV 29-1 1 EACH tablet 1 tab PO DAILY RF: 0 ondansetron 4 mg Film 4 mg PO Q6H PRN (Reason: Nausea) RF: 0 Referrals / Follow Up: Care Physician,No Primary [Primary Care Provider] - Disposition Disposition (needs filled in before D/C Order can be placed): Home, Self Care
--- NOTE | 2021-04-06 23:44 | NURSING ---
Pt states blood pressure runs lower, denies dizziness, nausea, ringing in ears and light-headedness.
[2021-04-07] MEDS: Acetaminophen 500 MG Tablet 1000 MG PO (02:28)
[2021-04-07 04:07] VITALS: BP 119/56; PULSE 83
[2021-04-07 04:10] VITALS: BP 119/56; PULSE 83; RESP 18; TEMP 36.4
[2021-04-07 07:47] VITALS: BP 107/62; PULSE 76; RESP 16; TEMP 36.5; O2SAT 97
[2021-04-07 07:48] VITALS: BP 107/62; PULSE 71
--- NOTE | 2021-04-07 09:52 | PCM.PN.OB ---
Subjective Subjective Patient without complaints. Breast-feeding going well. Minimal vaginal bleeding. Wants to go home today. Objective Data Objective Data Vital Signs: Vital Signs Temp Pulse Resp BP Pulse Ox 97.7 F L 71 16 107/62 97 04/07/21 07:47 04/07/21 07:48 04/07/21 07:47 04/07/21 07:48 04/07/21 07:47 Oxygen Delivery Method Room Air Weight: 167 lb 12.348 oz Body Mass Index (BMI) 27.1 Intake & Output: Intake and Output for Last 24 Hours 04/05/21 04/06/21 04/07/21 23:59 23:59 23:59 Intake Total 2200.00 / 2200.00 Output Total 1100 / 1100 Balance 1100.00 / 1100.00 Lab / Micro Data Result Diagrams: 04/06/21 07:05 Micro: Microbiology 04/06/21 07:05 Mucosa - Nose SARS-CoV-2 Antigen (Rapid) - Final Assessment & Plan (1) (vaginal after ): PLAN: Doing well day #1 status post routine spontaneous vaginal delivery. Will discharge to home with routine instructions.
[2021-04-07 12:35] VITALS: BP 104/61; PULSE 77
[2021-04-07 12:47] VITALS: BP 104/61; PULSE 77; RESP 16; TEMP 36.2
== END 2021-04-07 16:20 | disposition home or self-care (01) | DRG 807 ==
LOC: WPOUT 06:52 → WP 06:52
PROVIDERS: Admitting Provider Obstetrics & Gynecology; Referring Provider Obstetrics & Gynecology; Visit Provider Obstetrics & Gynecology
DX: O34.219 Maternal care for unspecified type scar from previous cesarean delivery (principal); Z37.0 Single live birth; Z3A.39 39 weeks gestation of pregnancy; O73.0 Retained placenta without hemorrhage
CPT/HCPCS: 59025; 59050; 85025; 86850; 86900; 86901; 87426; 99218; J7120; G0378